=== PATIENT | female | born 1985 | race Caucasian/White ===

== ENCOUNTER 2019-09-13 04:57 | Emergency (ER) | payer BC, OTHER ==
[2019-09-13] MEDS ORDERED: KETOROLAC 30 MG/ML INJ ONE (05:15)
[2019-09-13] MEDS ORDERED: ONDANSETRON 4 MG/2 ML VIAL ONE (05:15)
[2019-09-13] MEDS ORDERED: NA CHLORIDE 0.9% 1,000 ML ONE (05:24)
[2019-09-13 05:26] LABS: Absolute Lymphocytes (CBC) 2.7 K/uL (0.7-4.9); Basophils % 0.5 % (0-1.3); Hematocrit 39.4 % (36.0-45.0); Lymphocytes % 44.6 % (15.3-44.8); MPV 9.3 fL (7.6-11.3); RBC Red Blood Cell Count 4.31 M/uL (3.86-4.86)
[2019-09-13 05:32] LABS: Urine Blood 2+ (NEG); Urine Glucose NEGATIVE (NEG); Urine Protein NEGATIVE (NEG); Urine Specific Gravity >1.030 (1.005-1.030); Urine pH 5.5 (5.0-7.0)
[2019-09-13 05:39] LABS: Urine Bacteria <20 /HPF (<20); Urine Culture Reflex Order NOT NEEDED; Urine Mucus SLIGHT /HPF (NONE SEEN); Urine RBC >50 /HPF (NONE SEEN); Urine Urothelial Cells <5 /HPF (NONE SEEN)
[2019-09-13 05:41] LABS: ALT/SGPT 24 U/L (12-78); AST/SGOT 21 U/L (15-37); Albumin 3.7 g/dL (3.4-5.0); Alkaline Phosphatase 39 U/L (45-117); BUN Blood Urea Nitrogen 15 mg/dL (7-18); Bicarbonate 26 mmol/L (21-32); Bilirubin Direct < 0.1 mg/dL (0-0.2); Bilirubin Total 0.3 mg/dL (0.2-1.0); Glucose Level 100 mg/dL (74-106); Lipase 242 U/L (73-393); Potassium 3.9 mmol/L (3.5-5.1); Protein, Total 7.1 g/dL (6.4-8.2); Sodium Level 140 mmol/L (136-145)
[2019-09-13] MEDS ORDERED: MORPHINE 4 MG/ML SYR ONE (05:51)
--- NOTE | 2019-09-13 07:07 | EDPHYS ---
Physician Documentation [facility] Name: Jannette Mandel Age: 33 yrs Sex: Female : 1985 Arrival Date: 09/13/2019 Time: 05:02 Bed 5 Private MD: ED Physician Joseph Major HPI: 09/12 05:18 This 33 yrs old Female presents to ER via Ambulatory with complaints of tw4 Kidney Pain. 05:18 The patient complains of pain in the left low back. The pain does not radiate. Onset: tw4 The symptoms/episode began/occurred 2 hour(s) ago. Modifying factors: The symptoms are alleviated by nothing. the symptoms are aggravated by nothing. The patient has not experienced similar symptoms in the past. 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 - Social history:: Smoking status: unknown Patient uses alcohol, occasionally. Patient/guardian denies using street drugs. ROS: 05:18 Constitutional: Negative for fever, chills, and weight loss, Eyes: Negative for injury, tw4 pain, redness, and discharge, Cardiovascular: Negative for chest pain, palpitations, and edema, Respiratory: Negative for shortness of breath, cough, wheezing, and pleuritic chest pain, Abdomen/GI: Negative for abdominal pain, nausea, vomiting, diarrhea, and constipation, MS/Extremity: Negative for injury and deformity, Skin: Negative for injury, rash, and discoloration, Neuro: Negative for headache, weakness, numbness, tingling, and seizure. 05:18 Back: Positive for pain with movement, flank pain. Exam: 05:18 Constitutional: This is a well developed, well nourished patient who is awake, alert, tw4 and in no acute distress. Head/Face: Normocephalic, atraumatic. Chest/axilla: Normal chest wall appearance and motion. Nontender with no deformity. No lesions are appreciated. Cardiovascular: Regular rate and rhythm with a normal S1 and S2. No gallops, murmurs, or rubs. Normal PMI, no JVD. No pulse deficits. Respiratory: Lungs have equal breath sounds bilaterally, clear to auscultation and percussion. No rales, rhonchi or wheezes noted. No increased work of breathing, no retractions or nasal flaring. Abdomen/GI: Soft, non-tender, with normal bowel sounds. No distension or tympany. No guarding or rebound. No evidence of tenderness throughout. MS/ Extremity: Pulses equal, no cyanosis. Neurovascular intact. Full, normal range of motion. Neuro: Awake and alert, GCS 15, oriented to person, place, time, and situation. Cranial nerves II-XII grossly intact. Motor strength 5/5 in all extremities. Sensory grossly intact. Cerebellar exam normal. Normal gait. Psych: Awake, alert, with orientation to person, place and time. Behavior, mood, and affect are within normal limits. 05:18 Back: pain, that is moderate, ROM is normal, CVA tenderness, is noted on the left. Vital Signs: 05:11 BP 148 / 111; Pulse 87; Resp 19; Temp 98.4; Pulse Ox 100% ; Weight 50.35 kg; Height 5 rr5 ft. 2 in. (157.48 cm); Pain 4/10; 05:52 BP 127 / 84; Pulse 72; Resp 16; Pulse Ox 99% on R/A; rr5 06:00 BP 100 / 51; Pulse 80; Resp 19; Pulse Ox 99% ; Pain 0/10; rr5 06:45 BP 119 / 94; Pulse 71; Resp 17; Pulse Ox 100% ; Pain 0/10; rv 06:55 Pain 0/10; rv 07:26 BP 124 / 74; Pulse 68; Resp 12; Temp 98.6(O); Pulse Ox 99% on R/A; Pain 1/10; ch 05:11 Body Mass Index 20.30 (50.35 kg, 157.48 cm) rr5 MDM: 05:17 Patient medically screened. 09/12 05:13 Order name: Basic Metabolic Panel; Complete Time: 05:47 09/12 05:47 Interpretation: Normal except: CL 109; GFR 73; CA 8.4. 09/12 05:13 Order name: CBC with Diff; Complete Time: 05:47 09/12 05:48 Interpretation: Within normal limits. 09/12 05:13 Order name: Creatinine for Radiology; Complete Time: 05:47 09/12 05:48 Interpretation: Within normal limits: CRE 0.95. 09/12 05:13 Order name: Hepatic Function; Complete Time: 05:47 09/12 05:47 Interpretation: Normal except: ALK 39. 09/12 05:13 Order name: Lipase; Complete Time: 05:47 09/12 05:48 Interpretation: Within normal limits: LIP 242. 09/12 05:22 Order name: Urine Microscopic Only; Complete Time: 05:47 [facility] 09/12 05:48 Interpretation: Normal except: URBC >50. 09/12 05:13 Order name: IV Saline Lock; Complete Time: 05:17 tw4 09/12 05:14 Order name: CT Stone Protocol 09/12 05:24 Order name: Urine Dipstick--Ancillary (enter results); Complete Time: 05:47 09/12 05:48 Interpretation: Normal except: UBLD 2+. 09/12 05:24 Order name: Urine --Ancillary (enter results); Complete Time: 05:47 09/12 05:48 Interpretation: Normal except: USPGR >1.030. 09/12 05:13 Order name: Labs collected and sent; Complete Time: 05:17 09/12 05:28 Order name: Urine Dipstick-Ancillary (obtain specimen); Complete Time: 05:28 rr5 09/12 05:28 Order name: Urine Test (obtain specimen); Complete Time: 05:28 rr5 Administered Medications: 05:17 Drug: TORadol 30 mg Route: IVP; Site: right antecubital; mg2 06:00 Follow up: Response: Pain is unchanged, physician notified rv 05:17 Drug: Zofran (Ondansetron) 4 mg Route: IVP; Site: right antecubital; mg2 06:00 Follow up: Response: No adverse reaction rv 05:17 Drug: NS 0.9% 1000 ml Route: IV; Rate: 1 bolus; Site: right antecubital; mg2 05:49 Drug: morphine 4 mg {Note: rass 0.} Route: IVP; Site: right antecubital; rv 06:55 Follow up: Pain 0/10 Adult; Response: No adverse reaction; Marked relief of symptoms; rv Pain is decreased; RASS: Alert and Calm (0) Disposition: 09/13/19 07:07 Discharged to Home. Impression: Calculus of kidney with calculus of ureter. - Condition is Stable. - Discharge Instructions: Kidney Stones, Renal Colic. - Prescriptions for Ibuprofen 800 mg Oral Tablet - take 1 tablet by ORAL route every 8 hours As needed take with food; 30 tablet. Flomax 0.4 mg Oral Capsule, Sust. Release 24 hr - take 1 capsule by ORAL route once daily 1/2 hour following the same meal each day; 30 capsule. Tramadol 50 mg Oral Tablet - take 1 tablet by ORAL route every 8 hours as needed; 12 tablet. - Work release form, Medication Reconciliation Form, Thank You Letter, Antibiotic Education, Prescription Opioid Use form. - Follow up: Private Physician; When: Upon discharge from the Emergency Department; Reason: Recheck today's complaints, Continuance of care, Re-evaluation by your physician. - Problem is new. - Symptoms have improved. Signatures: Dispatcher [employer] EDWendy Lee RN RN Joseph Major MD MD tw4 Yuriy Lewis, RN DELORIS [facility] Jason Randle RN RN rv Nikita Nation RN RN rr5 Corrections: (The following items were deleted from the chart) 07:37 07:07 09/13/2019 07:07 Discharged to Home. Impression: Calculus of kidney with calculus ch of ureter. Condition is Stable. Forms are Medication Reconciliation Form, Thank You Letter, Antibiotic Education, Prescription Opioid Use. Follow up: Private Physician; When: Upon discharge from the Emergency Department; Reason: Recheck today's complaints, Continuance of care, Re-evaluation by your physician. Problem is new. Symptoms have improved. tw4
--- NOTE | 2019-09-13 07:07 | ER ---
Nurse's Notes [facility] Name: Jannette Mandel Age: 33 yrs Sex: Female : 1985 Arrival Date: 09/13/2019 Time: 05:02 Bed 5 Private MD: Diagnosis: Calculus of kidney with calculus of ureter Presentation: 09/12 05:11 Chief complaint: Patient states: left lower back pain started 3 AM and it feels like rr5 the urge I always want to pee. around 4 AM shooting pain felt feels nauseous and vomited once while on the way here. Coronavirus screen: Patient denies fever greater than 100.4F, cough, shortness of breath, or difficulty breathing. Proceed with normal triage process. Ebola Screen: Patient negative for fever greater than or equal to 101.5 degrees Fahrenheit, and additional compatible Ebola Virus Disease symptoms Patient denies exposure to infectious person. Patient denies travel to an Ebola-affected area in the 21 days before illness onset. Initial Sepsis Screen: Does the patient meet any 2 criteria? No. Patient's initial sepsis screen is negative. Does the patient have a suspected source of infection? No. Patient's initial sepsis screen is negative. Risk Assessment: Do you want to hurt yourself or someone else? Patient reports no desire to harm self or others. Onset of symptoms was September 13, 2019 at 03:00. 05:11 Method Of Arrival: Ambulatory rr5 05:11 Acuity: FARHEEN 3 rr5 SENIOR ADVISORY: 05:52 LMP N/A - control method rr5 Historical: - Allergies: 05:11 Codeine; rr5 - Home Meds: 05:11 control [Active]; montelukast oral oral [Active]; rr5 - PMHx: 05:11 Ovarian cyst; rr5 - PSHx: 05:11 Appendectomy; rr5 - Immunization history:: Adult Immunizations up to date. - Social history:: Smoking status: unknown Patient uses alcohol, occasionally. Patient/guardian denies using street drugs. Screenin:11 Abuse screen: Denies threats or abuse. Denies injuries from another. Nutritional rr5 screening: No deficits noted. Tuberculosis screening: No symptoms or risk factors identified. Fall Risk None identified. Total Callejas Fall Scale indicates No Risk (0-24 pts). Assessment: 05:11 General: Appears in no apparent distress. uncomfortable, Behavior is calm, cooperative, rr5 appropriate for age. 05:11 Pain: Complains of pain in left low back Pain does not radiate. Pain currently is 4 out rr5 of 10 on a pain scale. Quality of pain is described as sharp, Pain began gradually, 3 hours ago. Is intermittent. Neuro: Level of Consciousness is awake, alert, obeys commands, Oriented to person, place, time, situation. Cardiovascular: Capillary refill < 3 seconds Patient's skin is warm and dry. Respiratory: Airway is patent Respiratory effort is even, unlabored, Respiratory pattern is regular, symmetrical. GI: Abdomen is flat, Reports nausea, vomiting. : Urine is clear, Reports urgency, since 0300 urinary frequency, since 0300 Denies burning with urination, pain. EENT: No signs and/or symptoms were reported regarding the EENT system. Derm: Skin is intact, is healthy with good turgor, Skin temperature is warm. Musculoskeletal: Circulation, motion, and sensation intact. Capillary refill < 3 seconds. 05:25 Reassessment: Patient appears in no apparent distress at this time. send to CT scan rr5 assisted by CT staff via wheelchair. 06:02 Reassessment: Patient appears in no apparent distress at this time. Patient is alert, rr5 oriented x 3, equal unlabored respirations, skin warm/dry/pink. awaiting for CT result. Patient denies pain at this time. Patient states feeling better. Patient states symptoms have improved. Pain: Pain currently is 0 out of 10 on a pain scale. 06:56 Reassessment: Patient appears in no apparent distress at this time. Patient and/or rv family updated on plan of care and expected duration. Pain level reassessed. Patient is alert, oriented x 3, equal unlabored respirations, skin warm/dry/pink. Pain: Denies pain. 07:17 Reassessment: Patient appears in no apparent distress at this time. Patient and/or family updated on plan of care and expected duration. Pain level reassessed. Patient is alert, oriented x 3, equal unlabored respirations, skin warm/dry/pink. Patient states feeling better. Patient states symptoms have improved. Neuro: No deficits noted. Cardiovascular: No deficits noted. Respiratory: No deficits noted. GI: Abdomen is flat, Patient currently denies nausea. Derm: Skin is pink, warm \T\ dry. 07:26 Reassessment: Patient appears in no apparent distress at this time. awaiting scripts to be signed and provider to review results with pt prior to dispo. Vital Signs: 05:11 BP 148 / 111; Pulse 87; Resp 19; Temp 98.4; Pulse Ox 100% ; Weight 50.35 kg; Height 5 rr5 ft. 2 in. (157.48 cm); Pain 4/10; 05:52 BP 127 / 84; Pulse 72; Resp 16; Pulse Ox 99% on R/A; rr5 06:00 BP 100 / 51; Pulse 80; Resp 19; Pulse Ox 99% ; Pain 0/10; rr5 06:45 BP 119 / 94; Pulse 71; Resp 17; Pulse Ox 100% ; Pain 0/10; rv 06:55 Pain 0/10; rv 07:26 BP 124 / 74; Pulse 68; Resp 12; Temp 98.6(O); Pulse Ox 99% on R/A; Pain 1/10; ch 05:11 Body Mass Index 20.30 (50.35 kg, 157.48 cm) rr5 ED Course: 05:02 Patient arrived in ED. ds1 05:02 Nikita Nation, RN is Primary Nurse. rr5 05:11 Arm band placed on right wrist. rr5 05:11 Patient has correct armband on for positive identification. Placed in gown. Bed in low rr5 position. Call light in reach. Pulse ox on. NIBP on. 05:12 Joseph Major MD is Attending Physician. tw4 05:15 Triage completed. rr5 05:15 Inserted saline lock: 20 gauge in right antecubital area, using aseptic technique. rr5 Blood collected. 05:25 No provider procedures requiring assistance completed. Urine collected: clean catch rr5 specimen, clear. 05:52 CT Stone Protocol In Process Unspecified. EDMS 07:00 Report received from Lenard. ch 07:17 Primary Nurse role handed off by Nikita Nation, RN ch 07:17 Wendy Ac, DELORIS is Primary Nurse. ch 07:18 No apparent distress. Resting quietly. ch 07:18 IV discontinued, intact, bleeding controlled, No redness/swelling at site. Pressure ch dressing applied. Administered Medications: 05:17 Drug: TORadol 30 mg Route: IVP; Site: right antecubital; mg2 06:00 Follow up: Response: Pain is unchanged, physician notified rv 05:17 Drug: Zofran (Ondansetron) 4 mg Route: IVP; Site: right antecubital; mg2 06:00 Follow up: Response: No adverse reaction rv 05:17 Drug: NS 0.9% 1000 ml Route: IV; Rate: 1 bolus; Site: right antecubital; mg2 05:49 Drug: morphine 4 mg {Note: rass 0.} Route: IVP; Site: right antecubital; rv 06:55 Follow up: Pain 0/10 Adult; Response: No adverse reaction; Marked relief of symptoms; rv Pain is decreased; RASS: Alert and Calm (0) Outcome: 07:07 Discharge ordered by MD. castañeda 07:37 Patient left the ED. ch Signatures: Dispatcher [employer] EDWendy Lee RN DELORIS Mitra Valdes ds1 Joseph Major MD MD tw4 Yuriy Lewis, DELORIS RN mg2 Jason Randle RN RN rv Nikita Nation RN RN rr5
[2019-09-13 08:08] VITALS: BP 124/74; TEMP 98.6; O2SAT 99
--- NOTE | 2019-09-13 11:34 | RAD REPORT ---
EXAM DESCRIPTION: CT - Stone Protocol - 09/13/2019 5:50 am CLINICAL HISTORY: R/o stone COMPARISON: None. TECHNIQUE: CT ABDOMEN PELVIS WITHOUT IV CONTRAST on 09/13/2019 5:14 AM CDT This exam was performed according to our departmental dose-optimization program, which includes autom ated exposure control, adjustment of the mA and/or kV according to patient size and/or use of iterati ve reconstruction technique. FINDINGS: Lower lungs are clear. Abdomen: The liver is normal in appearance. There is no biliary dilatation. Gallbladder is relatively decompressed. The pancreas and spleen are normal in appearance. Adrenal glands and right kidney are unremarkable. There is mild left hydronephrosis secondary to a 2 mm left UVJ calculus. Abdominal aorta is normal in course and caliber without aneurysm. There is no free air. There is no r etroperitoneal adenopathy. Pelvis: There is moderate amount of stool throughout the colon. Urinary bladder is unremarkable. Ther e is no free fluid. Uterus is normal in size. Appendix is not clearly seen. Skeleton: There are no acute osseous findings. No suspicious bony lesions. IMPRESSION: Mildly obstructing 2 mm left UVJ calculus. Electronically signed by: Clovis Rosario MD 09/13/2019 5:57 AM CDT Due to temporary technical issues with the PACS/Fluency reporting system, reports are being signed by the in house radiologist as a courtesy to ensure prompt reporting. The interpreting radiologist is f ully responsible for the content of the report.
== END 2019-09-13 07:37 | disposition home or self-care (01) ==
LOC: ER 04:57
DX: N13.2 Hydronephrosis with renal and ureteral calculous obstruction (principal)
CPT/HCPCS: 85025; 80048; 36415; 81025; 80076; 83690; 76377; 74176; 96375; 96374; 99284; J7030; J2405; 81003; 81015

== ENCOUNTER 2024-07-03 09:35 | Emergency (ER) | payer BC, OTHER ==
--- OUTSIDE RECORDS SUMMARY | 2024-07-03 09:37 | XMS REPORT | Continuity of Care Document ---
Author Name Unknown Address [address] [facility] [place] [address] [facility] thconnect Address [address] [facility] [address] [place] [address] Care Team Providers Care Garnishment Specialist Name Role Phone PCP, PATIENT DOES NOT HAVE A Primary Care Physic josue Unavailable Lila Barnes Attending Clinician Unav ailable GC_SWHATBIC_LRichter Attending Clinician Unavail able GC_SWHAOMC_Miri Attending Clinician Unavail able Lila Barnes Attending Clinician [phone] Richa Kline Attending Clinician [phone] Bryanna Horne Attending Clinician + [phone] BRYANNA ACEVEDO Attending Clinician Unavailab le Doctor Unassigned, [place] Attending Clinician U Jenifer Leggett Attending Clinician [phone] Lila Barnes Admitting Clinician Unav ailable GC_SWHATBIC_LRichter Admitting Clinician Unavail able GC_SWHAOMC_Miri Admitting Clinician Unavail able Payers Payer Name Policy Type Policy Number Effective Date Expirati on Date Source [place] [id number] 2022 00:00:00 [facility] - OPEN ACCESS PLUS (POS) [id number] 2020 00:00:00 Problems Condition Name Condition Details Condition Category Status Onset Date Resolution Date Last Treatment Date Treating Clinician Comments Source Hypothyroi dism Hypothyroi dism Problem Active 7-13 00:00: 00 [facility] Anxiety Anxiety Problem Active 2-18 00:00: 00 [facility] Deliveries by Deliveries by Problem Active 02-17 00:00: 00 [facility] Family history of breast cancer Family History of Breast Cancer Problem Active 02-17 00:00: 00 [facility] Migraine Migraine Problem Active [facility] No known active problems No known active problems Disease [facility] Allergies, Adverse Reactions, Alerts Allergy Name Allergy Type Status Severity Reaction(s) Onset Date Inactive Date Treating Clinician Comments Source No Known Drug Intolera nces DA Active U 12-31 00:00: 00 [facility] codeine DA Active U 12-31 00:00: 00 [facility] codeine DA Active U ITCHING 12-31 00:00: 00 [facility] No Known Drug Intolera nces DA Active U NONE 12-31 00:00: 00 [facility] Codeine Allergy to substanc e Active 10-21 00:00: 00 [facility] Medical codeine DA Active U 10-21 00:00: 00 [facility] codeine DA Active U ITCHING 10-21 00:00: 00 [facility] NO KNOWN ALLERGIE S Drug Class Active [facility] Social History Social Habit Start Date Stop Date Quantity Comments Source Exposure to SARS-CoV-2 (event) Not sure [facility] Sex Assigned At 1985 00:00:00 1985 00:00:00 [facility] Smoking Status Start Date Stop Date Source Never Smoker [facility] Unknown if ever smoked [facility] Medications Ordered Medication Name Filled Medication Name Start Date Stop Date Current Medication? Ordering Clinician Indication Dosage Frequency Signature (SIG) Comments Components Source amoxicillin -clavulanat e 875-125 mg per tablet 2020-06 00:00: 00 05-19 05:59 :00 No [id number] 1{tbl} Take 1 tablet by mouth 2 (two) times daily for [address] [facility] Immunizations Ordered Immunization Name Filled Immunization Name Date Status Comments Source Rho(D)-IG Rho(D)-IG Unknown Completed [facility] Tdap Tdap Unknown Completed [facility] Vital Signs Vital Name Observation Time Observation Value Comments S ource Height 2023-12-30 00:00:00 62 [in_i] [facility] BP Diastolic 2023-12-30 00:00:00 87 mm[Hg] [facility] BP Systolic 2023-12-30 00:00:00 131 mm[Hg] [facility] BMI (Body Mass Index) 2023-12-30 00:00:00 20.3 kg/m2 [facility] Body Weight 2023-12-30 00:00:00 111 [lb_av] [facility] BP Diastolic 2021-06-19 00:00:00 79 mm[Hg] [facility] Height 2021-06-19 00:00:00 62 [in_i] [facility] BMI (Body Mass Index) 2021-06-19 00:00:00 19.4 kg/m2 [facility] BP Systolic 2021-06-19 00:00:00 118 mm[Hg] [facility] Body Weight 2021-06-19 00:00:00 106 [lb_av] [facility] Systolic blood pressure 2021-05-08 21:09:00 121 mm[Hg] [facility] Diastolic blood pressure 2021-05-08 21:09:00 77 mm[Hg] [facility] Heart rate 2021-05-08 21:09:00 71 /min [facility] Body temperature 2021-05-08 21:09:00 36.89 Nuzhat [facility] Respiratory rate 2021-05-08 21:09:00 17 /min [facility] Body height 2021-05-08 21:09:00 157.5 cm [facility] Body weight 2021-05-08 21:09:00 48.988 kg [facility] BMI 2021-05-08 21:09:00 19.75 kg/m2 [facility] Oxygen saturation in Arterial blood by Pulse oximetry 2021-05-08 21:09:00 99 /min [place] [facility] BP Diastolic 2020-10-15 00:00:00 70 mm[Hg] [facility] Height 2020-10-15 00:00:00 62 [in_i] [facility] BP Systolic 2020-10-15 00:00:00 100 mm[Hg] [facility] Body Weight 2020-10-15 00:00:00 131 [lb_av] [facility] Procedures Procedure Date / Time Performed Performing Clinician Source CONSENT/REFUSAL FOR DIAGNOSIS AND TREATMENT 2021-05-08 21:01:58 Doctor Unassigned, [place] [facility] ASSIGNMENT OF BENEFITS 2021-05-08 21:01:42 Docto r Unassigned, [place] [facility] [id number] 2020-12-31 00:00:00 JOSE ANGEL.01 [facility] [id number] 2020-12-31 00:00:00 LAURA.01 [facility] Section 2020-12-31 00:00:00 [facility] Total Salpingectomy 2020-12-31 00:00:00 [facility] US, obstetric, 3rd trimester 2020-10-15 00:00:00 [facility] Caesarean Section 2011-10-14 00:00:00 [facility] Appendectomy [facility] Encounters Start Date/Time End Date/Time Encounter Type Admission Type Attending Clinicians Care Facility Care Department Encounter ID Source 2021-01-04 10:30:00 Inpatient Lila Martini [facility] [id number] [facility] 2024-02-16 00:00:00 2024-02-16 00:00:00 Karen Julien, CHIEF ENGINEER PRODUCTION: [address], [address], [place] [address] , Ph. [facility] - [facility]_ [place] [facility]* [id number] [facility] 2024-02-12 00:00:00 2024-02-12 00:00:00 Karen Julien, CHIEF ENGINEER PRODUCTION: [address], [address], [place] [address] , Ph. [facility] - GC_SWH[facility]_ [place] Office* [id number] [facility] 2024-02-11 00:00:00 2024-02-11 00:00:00 Karen Julien, CHIEF ENGINEER PRODUCTION: [address], [address], [place] [address] , Ph. [facility] - GC_[facility]_ [place] [facility]* [id number] [facility] 2024-01-21 00:00:00 2024-01-21 00:00:00 Karen Julien, CHIEF ENGINEER PRODUCTION: [address], [address], [place] [address] , Ph. [facility] - GC_SWH[facility]OM[facility]_ [place] [facility]* [id number] [facility] 2023-12-30 00:00:00 2023-12-30 00:00:[address]: [address], [address], [place] [address] , Ph. [facility] - GC_SWH[facility]OM[facility]_ [place] [facility]* [id number] [facility] 2023-06-14 00:00:00 2023-06-14 00:00:00 Outpatient GC_[facility]BIC _JUANichter [facility] [id number] [facility] 2023-01-01 00:00:00 2023-01-01 00:00:00 [facility] [id number] [facility] 2022-12-03 00:00:00 2022-12-03 00:00:00 Outpatient GC_SWHATBIC _LRichter PRIV PRIV [id number] [facility] 2022-11-28 00:00:00 2022-11-28 00:00:00 Outpatient GC_SWHATBIC _LRichter PRIV PRIV [id number] [facility] 2022-11-28 00:00:00 2022-11-28 00:00:00 Outpatient GC_SWHATBIC _LRichter PRIV PRIV [id number] [facility] 2022-10-09 00:00:00 2022-10-09 00:00:00 Outpatient GC_SWHATBIC _LRichter PRIV PRIV [id number] [facility] 2022-10-09 00:00:00 2022-10-09 00:00:00 Outpatient GC_SWHAOMC_ [place] PRIV PRIV [id number] [facility] 2021-07-22 01:17:00 2021-07-22 01:17:00 Outpatient GC_SWHAOMC_ [place] PRIV PRIV [id number] [facility] 2021-07-11 02:17:00 2021-07-11 02:17:00 Outpatient GC_SWHAOMC_ [place] PRIV PRIV [id number] [facility] 2021-06-19 11:12:00 2021-06-19 11:12:00 Outpatient GC_SWHAOMC_ [place] PRIV PRIV [id number] [facility] 2021-06-19 00:00:00 2021-06-19 00:00:00 Outpatient Lila Marshall [facility] PRIV [id number] 2021-06-19 00:00:00 2021-06-19 00:00:[address] [facility]: [address], [address], [place] [address] , Ph. [facility] - GC_SWHAOMC_ [facility]* [id number] [facility] 2021-06-17 12:23:00 2021-06-17 12:23:00 Outpatient GC_SWHATBIC _LRichter [facility] PRIV [id number] [facility] 2021-05-08 15:04:20 2021-05-08 15:24:20 Urgent Care Richa Buck Kimberly J [facility] [id number] [facility] 2021-05-08 15:00:00 2021-05-08 15:00:00 Outpatient BRYANNA MARX [facility] [id number] [facility] 2021-05-08 00:00:00 2021-05-08 00:00:00 Orders Only Doctor Unassigned, [place] [facility] [id number] [facility] 2021-04-01 11:23:00 2021-04-01 11:23:00 Outpatient GC_SWHAOMC_ [place] [facility] PRIV [id number] [facility] 2020-12-31 13:25:00 2021-01-02 16:14:00 Inpatient EM Julissa-Richt er, Lila [facility] OBPP [id number] [facility] 2020-12-31 15:48:00 2020-12-31 15:48:00 Outpatient Julissa-Richt er, Lila HCACL LABO [id number] [facility] 2020-12-29 20:56:00 2020-12-29 23:35:00 Emergency EM Julissa-Richt er, Lila [facility] LOPEZ [id number] [facility] 2020-10-16 05:34:00 2020-10-16 05:34:00 Outpatient GC_SWHAOMC_ [place] [facility] PRIV [id number] [facility] 2020-10-15 10:09:00 2020-10-15 10:09:00 Outpatient GC_[facility]C_ [place] [facility] [id number] [facility] 2020-10-15 00:00:00 2020-10-15 00:00:00 Outpatient Jenifer Wills [facility] [id number] 2020-10-15 00:00:00 2020-10-15 00:00:00 Jenifer Wills PA: [address], [address], [place] [address] , Ph. [facility] - _SWOMC_ [place] [facility]* [id number] [facility] 2020-10-08 03:35:00 2020-10-08 03:35:00 [facility]patient [facility] [id number] [facility] 2020-09-18 09:48:00 2020-09-18 09:48:00 [facility]patient [facility] [id number] [facility] 2020-09-18 00:00:00 2020-09-18 00:00:[address]: [address], [address], [place] [address] , Ph. [facility] - [facility] [place] [facility]* [id number] [facility] Results Test Description Test Time Test Comments Results Result Co mments Source [facility] overall [id number] 00:00:00* Test Item Value Reference Range Interpretation Comme nts bracanalysis and myrisk / note 2 tests (test code = bracanalysis and myrisk / note 2 tests) SIGNIFICANT CLINICAL HISTORY FINDING [facility] - cancer history assessment [id number] 10:10:00* Test Item Value Reference Range Interpretation Comme nts [facility] [place] assessment result (test code = [facility] [place] history assessment result) Meets criteria A [facility] Medicalpap, LB + reflex to HR HPV if [id number] 00:00:00* Test Item Value Reference Range Interpretation Comme nts LMP date: (test code = LMP date:) 12/07/2023 Pap, liquid-based (test code = Pap, liquid-based) NILM nilm source (liquid-based cytology): (test code = source (liquid-based cytology):) CERVICAL (WHICH INCLUDES ENDOCERVICAL) [facility] Medicalpap, LB + reflex to HR HPV if [id number] 00:00:00* Test Item Value Reference Range Interpretation Comme nts LMP date: (test code = LMP date:) 06/09/2021 Pap, liquid-based (test code = Pap, liquid-based) nilm nilm source (liquid-based cytology): (test code = source (liquid-based cytology):) cervical (which includes endocervical) Joanieia MedicalFALLOPIAN TUBE,[id number] 13:48:00* Test Item Value Reference Range Interpretation Comme nts FALLOPIAN TUBE,STERILIZATION (test code = FALLST) RUN DATE: 01/02/21 [facility] PAGE 1 RUN TIME: 1923 Specimen Inquiry RUN USER: INTERFACE PATIENT: CATHIE NORMAN LOC: [facility] U #: [id number] AGE/SX: 35/F ROOM: [facility] RE12/31/20[facility] DR: Lila Barnes : 83 BED: A DIS: 01/02/21 STATUS: DIS IN TLOC: SPEC #: [id number] RECD: 01/01/21 STATUS: JAMEL MATHIS #: [id number] YAMILE: 12/31/20- SUBM DR: Lila Barnes MD ENTERED: 01/01/21 SP TYPE: MARIE DORAN DR: ORDERED: LEVEL II SURGIC/2 CODES: [id number] - FALLOPIAN TUBE PROCEDURES: LEVEL II SURGIC (Incomplete) TISSUES: FALLOPIAN TUBE, NOS - RIGHT,LEFT FALLOPIAN TUBES CLINICAL HISTORY 35 year old, 38.3 weeks, , repeat section, multiparity, desires sterility (wpd) FINAL DIAGNOSIS Right fallopian tube, salpingectomy: - unremarkable, completely transected fallopian tube Left fallopian tube, salpingectomy: - unremarkable, completely transected fallopian tube CPT: 02042 x2 ssa/wpd GROSS DESCRIPTION ANATOMIC SOURCE OF TISSUE (per Requisition): Right and left fallopian tubes (received in 2 containers) Each specimen is labeled with the patient's name and medical record number. Specimen #1 is designated "right fallopian tube" and consists of a 4.0 x 0.5 cm schultz-pink fallopian tube segment with fimbriae. Sectioning reveals a pinpoint lumen. Reforestation Worker sections including entire fimbriae are submitted in A1. Specimen #2 is designated "left fallopian tube" and consists of a 4.5 x 0.6 cm schultz-pink fallopian tube segment with fimbriae. Sectioning reveals a pinpoint lumen. Reforestation Worker sections including entire fimbriae are submitted in B1. /wpd 01/01/21 CONTINUED ON NEXT PAGE RUN DATE: 01/02/21 [facility] - Laboratory PAGE 2 RUN TIME: 1923 Specimen Inquiry RUN USER: INTERFACE SPEC #: [id number] PATIENT: CATHIE NORMAN #[id number] (Continued) --- Signed Karen Mariee 01/02/21 1348 END OF REPORT HGB [id number] 10:44:00* Test Item Value Reference Range Interpretation Comme nts HEMOGLOBIN (test code = HGB) 12.0 g/dL 10.1-13.8 N HEMATOCRIT (test code = HCT) 37.5 % 32.5-41.8 N AB HIV 1 22:31:00* Test Item Value Reference Range Interpretation Comme nts AB HIV 1 2 (test code = [id number]) NONREACTIVE INDEX NONREACTIVE Comments to Continuous Pillowcase Cutter: LDO EIS CONSENT FORM SIGNED FOR HIV TESTING? YAG HEPATITIS B [id number] 22:31:00* Test Item Value Reference Range Interpretation Comme nts AG HEPATITIS B SURFACE (test code = HBSAG) NONREACTIVE NONREACTIVE Comments to Continuous Pillowcase Cutter: LDO EIS CONSENT FORM SIGNED FOR HIV TESTING? YAB HEPATITIS C [id number] 22:31:00* Test Item Value Reference Range Interpretation Comme nts AB HEPATITIS C (test code = HCVAB) NONREACTIVE NONREACTIVE SIGNAL TO CUTOFF (test code = CUTOFF) <0.02 <0.80 N Comments to Continuous Pillowcase Cutter: LDO EIS CONSENT FORM SIGNED FOR HIV TESTING? YAB [id number] 22:31:00* Test Item Value Reference Range Interpretation Comme nts AB TREPONEMA (test code = TREPAB) NONREACTIVE NONREACTIVE Comments to Continuous Pillowcase Cutter: LDO EIS CONSENT FORM SIGNED FOR HIV TESTING? YAB HIV 1 22:31:00* Test Item Value Reference Range Interpretation Comme nts AB HIV 1 2 (test code = [id number]) NONREACTIVE INDEX NONREACTIVE Comments to Continuous Pillowcase Cutter: LDO EIS CONSENT FORM SIGNED FOR HIV TESTING? YAG HEPATITIS B [id number] 16:02:00* Test Item Value Reference Range Interpretation Comme nts AG HEPATITIS B SURFACE (test code = HBSAG) NONREACTIVE NONREACTIVE Comments to Continuous Pillowcase Cutter: LDO EIS CONSENT FORM SIGNED FOR HIV TESTING? YAB HEPATITIS C [id number] 16:02:00* Test Item Value Reference Range Interpretation Comme nts AB HEPATITIS C (test code = HCVAB) NONREACTIVE NONREACTIVE SIGNAL TO CUTOFF (test code = CUTOFF) <0.02 <0.80 N Comments to Continuous Pillowcase Cutter: LDO EIS CONSENT FORM SIGNED FOR HIV TESTING? YAB [id number] 16:02:00* Test Item Value Reference Range Interpretation Comme nts AB TREPONEMA (test code = TREPAB) NONREACTIVE NONREACTIVE Comments to Continuous Pillowcase Cutter: LDO EIS CONSENT FORM SIGNED FOR HIV TESTING? YAB HIV 1 16:02:00* Test Item Value Reference Range Interpretation Comme nts AB HIV 1 2 (test code = TED32CI) NONREACTIVE Comments to Continuous Pillowcase Cutter: LDO EIS CONSENT FORM SIGNED FOR HIV TESTING? YAG HEPATITIS B [id number] 15:30:00* Test Item Value Reference Range Interpretation Comme nts AG HEPATITIS B SURFACE (test code = HBSAG) NONREACTIVE NONREACTIVE Comments to Continuous Pillowcase Cutter: LDO EIS CONSENT FORM SIGNED FOR HIV TESTING? CHAB HEPATITIS C [id number] 15:30:00* Test Item Value Reference Range Interpretation Comme nts AB HEPATITIS C (test code = HCVAB) NONREACTIVE SIGNAL TO CUTOFF (test code = CUTOFF) <0.80 Comments to Continuous Pillowcase Cutter: LDO EIS CONSENT FORM SIGNED FOR HIV TESTING? CHAB [id number] 15:30:00* Test Item Value Reference Range Interpretation Comme nts AB TREPONEMA (test code = TREPAB) NONREACTIVE NONREACTIVE Comments to Continuous Pillowcase Cutter: LDO EIS CONSENT FORM SIGNED FOR HIV TESTING? CHAB HIV 1 15:30:00* Test Item Value Reference Range Interpretation Comme nts AB HIV 1 2 (test code = [id number]) NONREACTIVE Comments to Continuous Pillowcase Cutter: LDO EIS CONSENT FORM SIGNED FOR HIV TESTING? Y COMPREHENSIVE METABOLIC [id number] 15:07:00* Test Item Value Reference Range Interpretation Comme nts SODIUM (test code = NA) 138 mEq/L 135-145 N POTASSIUM (test code = K) 4.4 mEq/L 3.5-5.0 N CHLORIDE (test code = CL) 104 mEq/L 100-115 N CARBON DIOXIDE (test code = CO2) 20 mEq/L 22-31 L ANION GAP (test code = GAP) 18.30 10-20 N GLUCOSE (test code = GLU) 61 mg/dL 65-110 L BLOOD UREA NITROGEN (test co de = BUN) 8 mg/dL 7-18 N GLOMERULAR FILTRATION RATE ( test code = GFR) 95 ml/min >60 N CREATININE (test code = CREAT) 0.7 mg/dL 0.5-1.0 N TOTAL PROTEIN (test code = PROT) 6.5 gm/dL 6.3-8.2 N ALBUMIN (test code = ALB) 2.9 gm/dL 3.4-4.8 L CALCIUM (test code = CA) 8.2 mg/dL 8.4-10.2 L BILIRUBIN TOTAL (test code = BILT) 0.4 mg/dL 0.2-1.0 N SGOT/AST (test code = AST) 29 units/L 15-37 N SGPT/ALT (test code = ALT) 25 units/L 12-78 N ALKALINE PHOSPHATASE TOTAL ( test code = ALKP) 116 units/L 46-116 N CBC W/AUTO [id number] 14:50:00* Test Item Value Reference Range Interpretation Comme nts WHITE BLOOD CELL (test code = WBC) 14.8 K/mm3 6.5-12.3 H RED BLOOD CELL (test code = RBC) 3.95 M/mm3 3.51-4.69 N HEMOGLOBIN (test code = HGB) 12.6 g/dL 10.1-13.8 N HEMATOCRIT (test code = HCT) 37.4 % 32.5-41.8 N MEAN CELL VOLUME (test code = MCV) 94.7 fL 84.6-96.6 N MEAN CELL HGB (test code = MCH) 31.9 pg 27.3-33.9 N MEAN CELL HGB CONCETRATION ( test code = MCHC) 33.7 gm/dL 32.0-34.2 N RED CELL DISTRIBUTION WIDTH (test code = RDW) 15.6 % 12.2-16.3 N PLATELET COUNT (test code = PLT) 168 K/mm3 134-363 N MEAN PLATELET VOLUME (test c ode = MPV) 10.2 fL 9.2-12.7 N NEUTROPHIL % (test code = NT%) 84.4 % 57.9-77.3 H LYMPHOCYTE % (test code = LY%) 7.4 % 14.5-29.7 L MONOCYTE % (test code = MO%) 6.4 % 3.6-10.2 N EOSINOPHIL % (test code = EO%) 0.3 % 0.0-3.0 N BASOPHIL % (test code = BA%) 0.4 % 0.1-0.9 N NEUTROPHIL # (test code = NT#) 12.5 K/mm3 LYMPHOCYTE # (test code = LY#) 1.1 K/mm3 MONOCYTE # (test code = MO#) 0.9 K/mm3 EOSINOPHIL # (test code = EO#) 0.05 K/mm3 BASOPHIL # (test code = BA#) 0.1 K/mm3 RBC MORPHOLOGY REQUIRED (dominique t code = RBCM) NORMAL NORMAL PLATELET MORPHOLOGY REQUIRED (test code = PLTMR) NORMAL NORMAL CBC panel - Blood by Automated [id number] 00:00:00* Test Item Value Reference Range Interpretation Comme nts WBC (test code = WBC) 11.5 10 3.7-12.0 RBC (test code = RBC) 3.48 10 3.60-5.50 L HGB (test code = HGB) 11.0 g/dL 11.5-15.6 L HCT (test code = HCT) 33.0 % 34.5-46.5 L MCV (test code = MCV) 94.6 um 80.0-102.0 MCH (test code = MCH) 31.5 pg 25.0-34.1 MCHC (test code = MCHC) 33.3 g/dL 29.0-35.0 RDW (test code = RDW) 13.3 % 10.9-16.9 plt (test code = plt) 191 10 136-392 MPV (test code = MPV) 8.9 um 7.4-11.1 gran % (test code = gran %) 82.1 % 36.0-78.0 H lymph % (test code = lymph %) 13.2 % 12.0-48.0 mono % (test code = mono %) 4.0 % 0.0-13.0 eos % (test code = eos %) 1 % 0-8 baso % (test code = baso %) 0 % 0-2 gran # (test code = gran #) 9.4 10 1.2-6.8 H lymph # (test code = lymph #) 1.5 10 1.2-3.2 mono # (test code = mono #) 0.5 10 0.3-0.8 eos # (test code = eos #) 0.1 10 0.0-0.2 baso # (test code = baso #) 0.0 10 0.0-0.2 [facility]
[2024-07-03] MEDS ORDERED: ONDANSETRON 4 MG/2 ML VIAL ONE (10:21)
[2024-07-03] MEDS ORDERED: dexAMETHasone 10 MG/ML VIAL ONE (10:22)
[2024-07-03] MEDS ORDERED: KETOROLAC 30 MG/ML INJ ONE (10:22)
[2024-07-03] MEDS ORDERED: FENTANYL CITR 100 MCG/2 ML ONE (10:22)
[2024-07-03] MEDS ORDERED: NA CHLORIDE 0.9% 1,000 ML ONE (10:23)
[2024-07-03] MEDS ORDERED: DIAZEPAM 5 MG TABLET ONE (10:23)
[2024-07-03 10:48] LABS: Absolute Eosinophils 0.1 K/uL (0-0.5); Absolute Lymphocytes (CBC) 1.4 K/uL (0.7-4.9); Absolute Monocytes 0.5 K/uL (0.1-1.3); Absolute Neutrophil 4.6 K/uL (1.8-8.0); Basophils % 0.5 % (0-1.3); Eosinophils % 1.1 % (0-4.4); Hematocrit 39.2 % (36.0-45.0); Lymphocytes % 21.5 % (15.3-44.8); MCH 29.7 pg (27.0-35.0); MCHC 33.2 g/dL (32.0-36.0); MCV 89.3 fL (80-100); MPV 8.8 fL (7.6-11.3); Monocytes % 7.1 % (3.3-12.3); Neutrophils % 69.8 % (41.7-73.7); Nucleated Red Blood Cells % 0.2 % (0-0); Platelets 254 thou/uL (152-406); RBC Red Blood Cell Count 4.38 M/uL (3.86-4.86); Red Cell Distribution Width 14.3 % (12.1-15.2)
[2024-07-03 11:02] LABS: Albumin 3.3 g/dL (3.4-5.0); Albumin/Globulin Ratio 0.9 (1.1-1.8); Bilirubin Total 0.3 mg/dL (0.2-1.0); Globulin 3.5 g/dL (2.3-3.5); Protein, Total 6.8 g/dL (6.4-8.2)
--- NOTE | 2024-07-03 11:47 | RAD REPORT ---
EXAMINATION: CT LUMBAR SPINE WITHOUT CONTRAST CLINICAL INDICATION: Female, 38 years old. Pain;Radiculopathy TECHNIQUE: Axial CT images were obtained through the lumbar spine in soft tissue and bone windows wit hout intravenous contrast. Coronal and Sagittal reformatted images were created from the data set. One or more of the following dose reduction techniques were used: Automated exposure control, adjustm ent of the mA and/ or kV according to patient size, and/or iterative reconstruction. Unless otherwise specified, incidental findings do not require dedicated imaging follow-up. COMPARISON: No prior exam. FINDINGS: For purposes of this dictation, it is assumed that there are 5 non rib-bearing lumbar type vertebrae, and the most caudal fully segmented lumbar vertebra is labeled L5. ALIGNMENT: The lumbar spine demonstrates normal alignment without scoliosis or spondylolisthesis. BONES: Vertebral body heights are preserved. No aggressive osseous lesions. DISCS: Intervertebral disc space heights are maintained. LEVELS: Central disc protrusion at L5-S1. No significant spinal canal or neural foraminal stenosis. N o visualized abnormality within the spinal canal. SOFT TISSUE: No soft tissue abnormalities. IMPRESSION: No acute lumbar spine abnormalities. Central disc protrusion at L5-S1. If there is concern for radiculopathy, additional evaluation by ded icated lumbar spine MRI would be more helpful.
--- NOTE | 2024-07-03 12:02 | ER ---
Nurse's Notes [facility] Name: Jannette Mandel Age: 38 yrs Sex: Female : 1985 Arrival Date: 07/03/2024 Time: 09:35 Bed 16 Private MD: Diagnosis: Low back pain;Muscle spasm of back;Sciatica Presentation: 07/03 09:46 Chief complaint: Patient states: she was helping her lift heavy items in the ap3 attic yesterday, and is now having lower back pain of which she rates a 10/10 on the pain scale. Coronavirus screen: At this time, the client does not indicate any symptoms associated with coronavirus-19. Ebola Screen: No symptoms or risks identified at this time. Initial Sepsis Screen: Does the patient meet any 2 criteria? No. Patient's initial sepsis screen is negative. Does the patient have a suspected source of infection? No. Patient's initial sepsis screen is negative. Risk Assessment: Do you want to hurt yourself or someone else? Patient reports no desire to harm self or others. Onset of symptoms was July 02, 2024. 09:46 Method Of Arrival: Ambulatory ap3 09:46 Acuity: FARHEEN 3 ap3 Triage Assessment: 09:48 General: Appears uncomfortable, Behavior is calm, cooperative, appropriate for age. ap3 Pain: Complains of pain in low back area Pain currently is 10 out of 10 on a pain scale. Pain began 1 day ago. Neuro: Level of Consciousness is awake, alert, obeys commands, Oriented to person, place, time, situation, Appropriate for age Speech is normal. Cardiovascular: Patient's skin is warm and dry. Respiratory: Airway is patent Respiratory effort is even, unlabored, Respiratory pattern is regular, symmetrical. Musculoskeletal: Range of motion: intact in all extremities. 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 - Infectious Disease History:: Denies. - Social history:: Smoking status: Patient denies any tobacco usage or history of. Patient uses alcohol, occasionally. - Family history:: not pertinent. Screenin:49 Abuse screen: Denies threats or abuse. Nutritional screening: No deficits noted. ap3 Tuberculosis screening: No symptoms or risk factors identified. 12:18 [facility] ED Fall Risk Assessment (Adult) History of falling in the last 3 months, ap3 including since admission No falls in past 3 months (0 pts) Confusion or Disorientation No (0 pts) Intoxicated or Sedated No (0 pts) Impaired Gait No (0 pts) Mobility Assist Device Used No (0 pt) Altered Elimination. 12:28 [facility] ED Fall Risk Assessment (Adult) History of falling in the last 3 months, bp including since admission No falls in past 3 months (0 pts) Confusion or Disorientation No (0 pts) Intoxicated or Sedated No (0 pts) Impaired Gait No (0 pts) Mobility Assist Device Used No (0 pt) Altered Elimination No (0 pt) Score/Fall Risk Level 0 - 2 = Low Risk Oriented to surroundings. Assessment: 09:50 General: Appears in no apparent distress. uncomfortable, Behavior is calm, cooperative, bp appropriate for age. Pain: Complains of pain in low back area. Neuro: Level of Consciousness is awake, alert, obeys commands, Oriented to Appropriate for age. Cardiovascular: No deficits noted. Respiratory: No deficits noted. GI: No signs and/or symptoms were reported involving the gastrointestinal system. : No signs and/or symptoms were reported regarding the genitourinary system. EENT: No deficits noted. Derm: No deficits noted. Musculoskeletal: No deficits noted. 11:00 Reassessment: Patient appears in no apparent distress at this time. Patient is alert, bp oriented x 3, equal unlabored respirations, skin warm/dry/pink. Vital Signs: 09:46 BP 156 / 99; Pulse 72; Resp 17; Temp 97.8(O); Pulse Ox 100% on R/A; Weight 48.99 kg; ap3 Height 5 ft. 2 in. ; Pain 10/10; 11:00 BP 138 / 86; Pulse 62; Resp 16; Temp 98.1; Pulse Ox 97% ; bp 12:27 BP 120 / 76; Pulse 54; Resp 15; Pulse Ox 99% ; bp 09:46 Body Mass Index 19.75 (48.99 kg, 157.48 cm) ap3 09:46 Pain Scale: Adult ap3 ED Course: 09:37 Patient arrived in ED. ra3 09:38 Valentín Mosqueda MD is Attending Physician. brian 09:47 Triage completed. ap3 09:49 Arm band placed on right wrist. ap3 09:52 Vinnie Baig, RN is Primary Nurse. bp 10:40 Initial lab(s) drawn, by me, sent to lab. Inserted saline lock: 22 gauge in left bp antecubital area, using aseptic technique. Blood collected. Flushed with 10 mL NS. 10:43 Radiology exam delayed due to test not completed at this time. sm9 10:59 CT Lumbar Spine Wo Con In Process Unspecified. EDMS 11:21 Patient has correct armband on for positive identification. Provided Education on: bp Conscious Sedation, Procedure Consent. 12:28 No provider procedures requiring assistance completed. IV discontinued, intact, bp bleeding controlled, No redness/swelling at site. Pressure dressing applied. Administered Medications: 10:38 Drug: Diazepam PO 10 mg PO once Route: PO; bp 11:58 Follow up: Response: No adverse reaction bp 10:39 Drug: NS 0.9% IV 1000 ml IV at 1000 ml once; to be given as a bolus over 60 minutes bp Route: IV; Rate: 1000 ml; Site: left antecubital; 12:29 Follow up: IV Status: Completed infusion bp 10:39 Drug: Ketorolac IVP 30 mg IVP once Route: IVP; Site: left antecubital; bp 11:58 Follow up: Response: No adverse reaction bp 10:39 Drug: Ondansetron IVP 4 mg IVP once; over 2 minutes Route: IVP; Site: left antecubital; bp 11:58 Follow up: Response: No adverse reaction bp 10:39 Drug: fentaNYL (PF) IVP 25 mcg IVP once Route: IVP; Site: left antecubital; bp 11:58 Follow up: Response: No adverse reaction bp 10:39 Drug: fentaNYL (PF) IVP 25 mcg IVP once Route: IVP; Site: left antecubital; bp 11:58 Follow up: Response: No adverse reaction bp 10:40 Drug: Decadron - Dexamethasone IVP 10 mg IVP once Route: IVP; Site: left antecubital; bp 11:57 Follow up: Response: No adverse reaction bp Outcome: 12:01 Discharge ordered by . brian 12:28 Discharged to home ambulatory, with family, bp 12:28 Condition: stable 12:28 Discharge instructions given to patient, Instructed on discharge instructions, follow up and referral plans. medication usage, Demonstrated understanding of instructions, follow-up care, medications, Prescriptions given X 4, 12:29 Patient left the ED. bp Signatures: Dispatcher [employer] EDMS Valentín Mosqueda MD MD cha Peltier, Brian, RN RN bp Demetria Jacobs RN RN 3 Jeana Erazo [facility] Ernestina Arreaga ra3
--- NOTE | 2024-07-03 12:02 | EDPHYS ---
Physician Documentation [facility] Name: Jannette Mandel Age: 38 yrs Sex: Female : 1985 Arrival Date: 07/03/2024 Time: 09:35 Bed 16 Private MD: CARLOS Physician Valentín Mosqueda HPI: 07/03 11:58 This 38 yrs old Female presents to ER via Ambulatory with complaints of Back brian Pain. 11:58 The patient presents with pain and decreased range of motion, and an injury. The brian symptoms are located in the low back. Onset: The symptoms/episode began/occurred yesterday. The pain does not radiate. Associated signs and symptoms: The patient has no apparent associated signs or symptoms. The problem was sustained when lifting. Modifying factors: The patient symptoms are alleviated by remaining still, the patient symptoms are aggravated by any movement, bending, lifting, movement. Severity of symptoms: At their worst the symptoms were moderate, in the emergency department the symptoms are unchanged. The patient has not experienced similar symptoms in the past. 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 - Infectious Disease History:: Denies. - Social history:: Smoking status: Patient denies any tobacco usage or history of. Patient uses alcohol, occasionally. - Family history:: not pertinent. ROS: 11:58 Constitutional: Negative for fever, chills, and weight loss, Eyes: Negative for injury, brian pain, redness, and discharge, ENT: Negative for injury, pain, and discharge, Neck: Negative for injury, pain, and swelling, Cardiovascular: Negative for chest pain, palpitations, and edema, Respiratory: Negative for shortness of breath, cough, wheezing, and pleuritic chest pain, Abdomen/GI: Negative for abdominal pain, nausea, vomiting, diarrhea, and constipation, : Negative for injury, bleeding, discharge, and swelling, MS/Extremity: Negative for injury and deformity, Skin: Negative for injury, rash, and discoloration, Neuro: Negative for headache, weakness, numbness, tingling, and seizure, Psych: Negative for depression, anxiety, suicide ideation, homicidal ideation, and hallucinations, Allergy/Immunology: Negative for hives, rash, and allergies, Endocrine: Negative for neck swelling, polydipsia, polyuria, polyphagia, and marked weight changes, Hematologic/Lymphatic: Negative for swollen nodes, abnormal bleeding, and unusual bruising, 11:58 Back: Positive for injury or acute deformity, decreased range of motion, pain at rest, of the lumbar area, Exam: 11:58 Constitutional: This is a well developed, well nourished patient who is awake, alert, brian and in no acute distress. Head/Face: Normocephalic, atraumatic. Eyes: Pupils equal round and reactive to light, extra-ocular motions intact. Lids and lashes normal. Conjunctiva and sclera are non-icteric and not injected. Cornea within normal limits. Periorbital areas with no swelling, redness, or edema. ENT: Nares patent. No nasal discharge, no septal abnormalities noted. Tympanic membranes are normal and external auditory canals are clear. Oropharynx with no redness, swelling, or masses, exudates, or evidence of obstruction, uvula midline. Mucous membranes moist. Neck: Trachea midline, no thyromegaly or masses palpated, and no cervical lymphadenopathy. Supple, full range of motion without nuchal rigidity, or vertebral point tenderness. No Meningismus. Chest/axilla: Normal chest wall appearance and motion. Nontender with no deformity. No lesions are appreciated. Cardiovascular: Regular rate and rhythm with a normal S1 and S2. No gallops, murmurs, or rubs. Normal PMI, no JVD. No pulse deficits. Respiratory: Lungs have equal breath sounds bilaterally, clear to auscultation and percussion. No rales, rhonchi or wheezes noted. No increased work of breathing, no retractions or nasal flaring. Abdomen/GI: Soft, non-tender, with normal bowel sounds. No distension or tympany. No guarding or rebound. No evidence of tenderness throughout. Skin: Warm, dry with normal turgor. Normal color with no rashes, no lesions, and no evidence of cellulitis. MS/ Extremity: Pulses equal, no cyanosis. Neurovascular intact. Full, normal range of motion., bilateral aka Neuro: Awake and alert, GCS 15, oriented to person, place, time, and situation. Cranial nerves II-XII grossly intact. Motor strength 5/5 in all extremities. Sensory grossly intact. Cerebellar exam normal. Normal gait. Psych: Awake, alert, with orientation to person, place and time. Behavior, mood, and affect are within normal limits. 11:58 Back: pain, that is moderate, ROM is painful, normal spinal alignment noted, CVA tenderness, is absent, muscle spasm, is appreciated in the left low back, left mid back, right mid back and right low back, Vital Signs: 09:46 BP 156 / 99; Pulse 72; Resp 17; Temp 97.8(O); Pulse Ox 100% on R/A; Weight 48.99 kg; ap3 Height 5 ft. 2 in. ; Pain 10/10; 11:00 BP 138 / 86; Pulse 62; Resp 16; Temp 98.1; Pulse Ox 97% ; bp 12:27 BP 120 / 76; Pulse 54; Resp 15; Pulse Ox 99% ; bp 09:46 Body Mass Index 19.75 (48.99 kg, 157.48 cm) ap3 09:46 Pain Scale: Adult ap3 MDM: 09:38 Medical Screening Exam initiated brian 11:59 Differential diagnosis: arthritis, chronic back pain, Fatigue Fracture Ligament Injury brian Peptic Ulcer ruptured disc, Scoliosis sprain, Ureterolithiasis vertebral fracture. Data reviewed: vital signs, nurses notes, lab test result(s), radiologic studies, CT scan. Consideration of Admission/Observation Escalation of care including admission/observation considered. I considered the following discharge prescriptions or medication management in the emergency department Medications were administered in the Emergency Department. See MAR. Independent interpretation of the following test(s) in the Emergency Department CT Scan: My interpretation is ct lumbar. Historians other than the Patient: Spouse/Significant Other: spouse informed. Care significantly affected by the following chronic conditions: ovarian cyst, btl. 07/03 10:06 Order name: CBC with Diff; Complete Time: 11:57 [facility] 07/03 10:06 Order name: Comprehensive Metabolic Panel; Complete Time: 11:57 [facility] 07/03 10:06 Order name: CT Lumbar Spine Wo Con; Complete Time: 11:57 [facility] Administered Medications: 10:38 Drug: Diazepam PO 10 mg PO once Route: PO; bp 11:58 Follow up: Response: No adverse reaction bp 10:39 Drug: NS 0.9% IV 1000 ml IV at 1000 ml once; to be given as a bolus over 60 minutes bp Route: IV; Rate: 1000 ml; Site: left antecubital; 12:29 Follow up: IV Status: Completed infusion bp 10:39 Drug: Ketorolac IVP 30 mg IVP once Route: IVP; Site: left antecubital; bp 11:58 Follow up: Response: No adverse reaction bp 10:39 Drug: Ondansetron IVP 4 mg IVP once; over 2 minutes Route: IVP; Site: left antecubital; bp 11:58 Follow up: Response: No adverse reaction bp 10:39 Drug: fentaNYL (PF) IVP 25 mcg IVP once Route: IVP; Site: left antecubital; bp 11:58 Follow up: Response: No adverse reaction bp 10:39 Drug: fentaNYL (PF) IVP 25 mcg IVP once Route: IVP; Site: left antecubital; bp 11:58 Follow up: Response: No adverse reaction bp 10:40 Drug: Decadron - Dexamethasone IVP 10 mg IVP once Route: IVP; Site: left antecubital; bp 11:57 Follow up: Response: No adverse reaction bp Disposition Summary: 07/03/24 12:01 Discharge Ordered Notes: Location: Home brian Problem: new brian Symptoms: have improved brian Condition: Stable rbian Diagnosis - Low back pain brian - Muscle spasm of back brian - Sciatica brian Followup: brian - With: Private Physician - When: 2 - 3 days - Reason: Recheck today's complaints, Continuance of care, Re-evaluation by your physician Discharge Instructions: - Discharge Summary Sheet brian - Acute Back Pain, Adult brian - Muscle Cramps and Spasms brian - Musculoskeletal Pain brian - Sciatica brian - Radicular Pain [facility] Forms: - Medication Reconciliation Form [facility] - Antibiotic Education brian - Prescription Opioid Use brian - Patient Portal Instructions [facility] - Leadership Thank You Letter [facility] Prescriptions: - dexamethasone 4 mg Oral tablet - take 1 tablet ORAL route once daily; 4 tablet; Refills: 0, Product Selection brian Permitted - diclofenac sodium 50 mg Oral tablet, delayed release (enteric coated) - take 1 tablet ORAL route 3 times per day; 21 tablet; Refills: 0, Product brian Selection Permitted - Tramadol 50 mg Oral tablet - take 1 tablet ORAL route every 6-8 hours as needed; 20 tablet; Refills: 0, brian Product Selection Permitted - methocarbamol 750 mg Oral tablet - take 1 tablet ORAL route every 6 hours prn; 36 tablet; Refills: 0, Product brian Selection Permitted Signatures: Dispatcher [employer] Valentín Deshpande, Vinnie Mae MD, cha, DELORIS PUENTES bp Demetria Jacobs RN RN ap3
[2024-07-03 13:13] VITALS: TEMP 98.1
[2024-07-03 13:19] VITALS: BP 120/76; O2SAT 99
== END 2024-07-03 12:29 | disposition home or self-care (01) ==
LOC: ER 09:35
DX: M54.40 Lumbago with sciatica, unspecified side (principal); M62.838 Other muscle spasm; Z88.5 Allergy status to narcotic agent
CPT/HCPCS: 96361; 85025; 36415; 80053; 72131; 96375; 96374; 99284; J3010; J1100; J2405; J7030